=== PATIENT | female | born 1965 | race Hispanic/Latino ===

== ENCOUNTER → 2023-12-27 12:01 | Outpatient (REF) | payer OTHER, SELFPAY ==
[2023-12-27 14:03] LABS: % Basophils 0.9 % (0-2); % Eosinophils 5.1 % (0-6); % Immature Granulocytes 0.3 % (0-0.5); % Lymphocytes 40.9 % (20.5-51.1); % Monocytes 8.6 % (1.7-9.3); % Neutrophils 44.2 % (42.2-75.2); Absolute Basophils 0.1 10^3/uL (0-0.2); Absolute Eosinophils 0.3 10^3/uL (0-0.7); Absolute Lymphocytes 2.7 10^3/uL (1.2-3.4); Absolute Monocytes 0.6 10^3/uL (0.1-0.6); Absolute Neutrophils 2.9 10^3/uL (1.4-6.5); Hematocrit 38.3 % (37.0-47.0); Hemoglobin 13.3 g/dL (12.0-16.0); Mean Corp Hgb Conc. 34.7 g/dL (33.0-37.0); Mean Corpuscular Hgb 30.7 pg (27.0-31.0); Mean Corpuscular Volume 88.5 fL (81.0-99.0); Mean Platelet Volume 10.6 fL (7.4-10.4); Nucleated Red Blood Cells % 0 %; Platelet Count 314 10^3/uL (130-400); Red Blood Cell Count 4.33 10^6/uL (4.20-5.40); Red Cell Dist. Width 12.4 % (11.5-14.5); White Blood Cell Count 6.5 10^3/uL (4.8-10.8)
[2023-12-27 14:24] LABS: Glycohemoglobin (HgbA1c) 5.9 % (4.0-5.6)
[2023-12-27 14:30] LABS: ALT (SGPT) 22 U/L (0-35); AST (SGOT) 27 U/L (14-36); Albumin 4.9 g/dl (3.5-5.0); Alkaline Phosphatase 101 U/L (38-126); Blood Urea Nitrogen 10 mg/dl (7-17); Calcium 9.9 mg/dl (8.4-10.2); Carbon Dioxide 23 mmol/L (22-30); Chloride 106 mmol/L (98-107); Glucose 93 mg/dl (70-99); HDL Cholesterol 70 mg/dl; LDL Cholesterol, Calculated 136 mg/dl; Potassium 4.1 mmol/L (3.5-5.1); Sodium 139 mmol/L (135-145); Total Bilirubin 0.6 mg/dl (0.2-1.3); Total Cholesterol 240 mg/dl (50-199); Total Protein 8.1 g/dl (6.3-8.2); Triglyceride 174 mg/dl (10-149); Very Low Density Lipoprotein 34 mg/dl (0-30); eGFR > 60.00
[2023-12-27 14:54] LABS: Vitamin D, 25-OH*** 36.6 ng/mL (30-80)
[2023-12-27 15:08] LABS: TSH Reflex To Free T4 4.82 uIU/ml (0.47-4.68)
== END ==
LOC: REG 12:01
PROVIDERS: ATTENDING PHYSICIAN Nurse Practitioner Acute Care
DX: Z00.00 Encounter for general adult medical examination without abnormal findings (principal)
CPT/HCPCS: 36415; 80053; 80061; 82306; 83036; 84439; 84443; 85025

== ENCOUNTER 2024-03-21 10:09 | Outpatient (RCR) | payer OTHER, SELFPAY | END 2024-03-21 23:59 | disposition home or self-care (01) | LOC: ROT 10:09 | PROVIDERS: ATTENDING PHYSICIAN Orthopaedic Surgery; FAMILY PHYSICIAN Nurse Practitioner Adult Health | DX: M65.311 Trigger thumb, right thumb (principal); M65.312 Trigger thumb, left thumb; Z73.6 Limitation of activities due to disability | CPT/HCPCS: 97166; 97535; 97760 ==

== ENCOUNTER 2024-03-28 13:49 | Outpatient (RCR) | payer OTHER, SELFPAY | END 2024-03-28 23:59 | disposition home or self-care (01) | LOC: ROT 13:49 | PROVIDERS: ATTENDING PHYSICIAN Orthopaedic Surgery; FAMILY PHYSICIAN Nurse Practitioner Adult Health | DX: M65.311 Trigger thumb, right thumb (principal); M65.312 Trigger thumb, left thumb; Z73.6 Limitation of activities due to disability | CPT/HCPCS: 97010; 97140; 97535 ==

== ENCOUNTER 2024-07-02 10:44 | Emergency (ER) | payer OTHER, SELFPAY ==
[2024-07-02 10:47] VITALS: BP 164/89
[2024-07-02 11:25] LABS: % Basophils 1.1 % (0-2); % Eosinophils 3.6 % (0-6); % Immature Granulocytes 0.2 % (0-0.5); % Lymphocytes 47.8 % (20.5-51.1); % Monocytes 7.5 % (1.7-9.3); % Neutrophils 39.8 % (42.2-75.2); Absolute Basophils 0.1 10^3/uL (0-0.2); Absolute Eosinophils 0.2 10^3/uL (0-0.7); Absolute Lymphocytes 2.9 10^3/uL (1.2-3.4); Absolute Monocytes 0.5 10^3/uL (0.1-0.6); Absolute Neutrophils 2.4 10^3/uL (1.4-6.5); Hematocrit 39.6 % (37.0-47.0); Hemoglobin 13.7 g/dL (12.0-16.0); Mean Corp Hgb Conc. 34.6 g/dL (33.0-37.0); Mean Corpuscular Volume 89.6 fL (81.0-99.0); Mean Platelet Volume 9.8 fL (7.4-10.4); Nucleated Red Blood Cells % 0 %; Platelet Count 306 10^3/uL (130-400); Red Blood Cell Count 4.42 10^6/uL (4.20-5.40); Red Cell Dist. Width 13.1 % (11.5-14.5); White Blood Cell Count 6.1 10^3/uL (4.8-10.8)
[2024-07-02 12:24] LABS: ALT (SGPT) 20 U/L (0-35); AST (SGOT) 27 U/L (14-36); Albumin 4.5 g/dl (3.5-5.0); Alkaline Phosphatase 109 U/L (38-126); Blood Urea Nitrogen 12 mg/dl (7-17); Calcium 9.5 mg/dl (8.4-10.2); Carbon Dioxide 19 mmol/L (22-30); Chloride 109 mmol/L (98-107); Glucose 107 mg/dl (70-99); Potassium 4.1 mmol/L (3.5-5.1); Sodium 139 mmol/L (135-145); Total Bilirubin 0.7 mg/dl (0.2-1.3); Total Protein 7.7 g/dl (6.3-8.2); eGFR > 60.00
--- NOTE | 2024-07-02 12:26 | ED.GENMED ---
History of Present Illness
General
Chief Complaint: Dizziness
Time Seen by Provider: 07/02/24 11:48
History of Present Illness
History of Present Illness:
59-year-old female with history of hypertension presents for evaluation of headache and lightheadedness ongoing for the past 3 weeks, she states at that time she had a fall and struck her head on the ground, no LOC. Symptoms have been ongoing since
that time. Dizziness is predominantly with exertion, no obvious positional change. No vision changes, chest pain, shortness of breath, nausea vomiting or diarrhea.
Review of Systems
Review of Systems
Allergies reviewed?: Yes
All Other Systems: ROS reviewed and negative except as documented in HPI and ROS
Phy Exam
Physical Exam
Physical Exam:
GEN: Well appearing, NAD, WDWN
HEENT: Oral mucosa moist, no scleral icterus, no nasal congestion
Cardiac: Regular rate
Lung: No respiratory distress, no tachypnea
MSK: No gross deformity or injuries
Skin: Good color, no pallor or jaundice, no rashes
Neuro: AO x3; CN II-XII grossly intact. BUE strength 5/5 in all dsouza, sensation intact and symmetric. BLE strength 5/5 in all dsouza, sensation intact and symmetric
Psych: Calm, cooperative
Course
Orders/Labs/Results
Orders:
Orders
07/02/24 10:50
Electrocardiogram (*1) Urgent
Reason for Study: Vertigo / Dizzy
EKG- Treatment ONCE
07/02/24 11:14
Complete Blood Count/With Diff Urgent
Comprehensive Metabolic Panel Urgent
07/02/24 12:05
CT Head W/o Iv Contrast Urgent
Comment:
Reason For Exam: head injury, dizziness
Abnormal Lab Results
07/02/24
11:14
Neutrophils % 39.8 L %
(42.2-75.2)
Chloride 109 H mmol/L
(98-107)
Carbon Dioxide 19 L mmol/L
(22-30)
Creatinine 0.5 L mg/dL
(0.6-1.0)
Glucose 107 H mg/dl
(70-99)
07/02/24 11:14
07/02/24 11:14
Vital Signs
Initial and Last Documented VS:
Initial Vital Signs
Temp Pulse Resp BP Pulse Ox
98.0 F 80 18 164/89 99
07/02/24 10:47 07/02/24 10:47 07/02/24 10:47 07/02/24 10:47 07/02/24 10:47
Last Documented Vital Signs
Temp Pulse Resp BP Pulse Ox
98.0 F 80 18 164/89 99
07/02/24 10:47 07/02/24 10:47 07/02/24 10:47 07/02/24 10:47 07/02/24 14:36
MDM/Problems Addressed
MDM/Problems Addressed:
CT of the head shows no evidence for acute traumatic injury however there is evidence for acute ethmoid sinusitis. This may be contributory to her headache and dizziness. Will treat with antibiotics for this, in regards to her head injury
discussed supportive care and return parameters for concussion, she has primary care follow-up later this week
*Critical Care Note
Total Time (30-74mins, 75-104mins- exclusive of procedures): Not Applicable
ED Attending Note
-
Portions of this chart may have been created with voice recognition software.� Occasional wrong word or��sound alike� substitutions may have occurred due to the inherent limitations of voice recognition software.
Discharge Plan
Departure
Patient Disposition: Home (Routine Discharge)
Date of Disposition: 07/02/24
Time of Disposition: 13:58
Patient with high blood pressure during this ER visit?: No
Discharge Problem:
Concussion, Ethmoid sinusitis
Instructions: Concussion in adults
Prescriptions:
New
amoxicillin 875 mg tablet
875 mg PO BID Qty: 10 0RF
Referrals:
NONE,* [Family Provider] -
Activity Restrictions/Additional Instructions:
Sotomayor tomograf�a computarizada no muestra signos de lesi�n cerebral. Sin embargo, es probable que haya sufrido stephanie conmoci�n cerebral ray debido a haja s�ntomas desde la ca�da. [place] mejorar� gradualmente por s� solo. Sotomayor tomograf�a computarizada mostr�
signos de inflamaci�n de los senos nasales, lo que tambi�n puede contribuir a haja mareos. Por ello, le daremos un antibi�humberto para tratarlo stephon 5 d�as.
Interventions
Interventions:
*Risk Screen - Suicide Last Done: 07/02/24 10:47
*General Assessment Last Done: 07/02/24 10:47
*Neglect/Abuse Screening Last Done: 07/02/24 10:47
*ED COVID-19 Vaccine History Last Done: 07/02/24 10:47
*Nursing Disposition Last Done: 07/02/24 14:36
ED- Neurological Assessment Last Done: 07/02/24 12:20
Discharge Date and Time
Discharge Date/Time: 07/02/24 14:38
Print Language: [id number]
== END 2024-07-02 14:38 | disposition home or self-care (01) ==
LOC: EMR 10:44
PROVIDERS: Emergency Medicine; EMERGENCY PHYSICIAN Emergency Medicine
DX: S06.0X0A Concussion without loss of consciousness, initial encounter (principal); W19.XXXA Unspecified fall, initial encounter; J01.20 Acute ethmoidal sinusitis, unspecified; I10 Essential (primary) hypertension
CPT/HCPCS: 99284; 70450; 80053; 85025; 93005

== ENCOUNTER → 2024-07-15 11:01 | Outpatient (REF) | payer OTHER, SELFPAY ==
[2024-07-15 13:20] LABS: ALT (SGPT) 24 U/L (0-35); AST (SGOT) 25 U/L (14-36); Alkaline Phosphatase 92 U/L (38-126); Blood Urea Nitrogen 12 mg/dl (7-17); Calcium 9.6 mg/dl (8.4-10.2); Carbon Dioxide 23 mmol/L (22-30); Chloride 103 mmol/L (98-107); Glucose 98 mg/dl (70-99); HDL Cholesterol 62 mg/dl; LDL Cholesterol, Calculated 134 mg/dl; Potassium 4.3 mmol/L (3.5-5.1); Sodium 138 mmol/L (135-145); Total Bilirubin 1.1 mg/dl (0.2-1.3); Total Cholesterol 232 mg/dl (50-199); Triglyceride 181 mg/dl (10-149); Very Low Density Lipoprotein 36 mg/dl (0-30); eGFR > 60.00
[2024-07-15 13:33] LABS: Glycohemoglobin (HgbA1c) 5.8 % (4.0-5.6)
[2024-07-15 13:48] LABS: TSH 4.05 uIU/ml (0.47-4.68)
== END ==
LOC: CLINIC 11:01
PROVIDERS: ATTENDING PHYSICIAN Nurse Practitioner Adult Health
DX: E03.9 Hypothyroidism, unspecified (principal); R73.03 Prediabetes; E78.2 Mixed hyperlipidemia; B49 Unspecified mycosis
CPT/HCPCS: 36415; 80053; 80061; 83036; 84439; 84443